=== PATIENT | female | born 1985 | race Hispanic/Latino ===

== ENCOUNTER 2020-09-06 13:29 | Observation (INO) | payer BC ==
[~2020-09-06 13:29] MED LIST: PREN-154 PO
[2020-09-06 14:29] LABS: BASOPHILS % (AUTO) 0.3 % (0.0-5.0); EOSINOPHILS % (AUTO) 0.7 % (0.0-8.0); HEMATOCRIT 29.1 % (36-48); LYMPHOCYTES % (AUTO) 27.3 % (21.0-51.0); MEAN CORPUSCULAR HEMOGLOBIN 25.5 pg (27.0-33.0); MEAN CORPUSCULAR HGB CONC 32.3 g/dL (32.0-36.0); MEAN CORPUSCULAR VOLUME 79.1 fL (79-99); MONOCYTES % (AUTO) 8.2 % (3.0-13.0); NEUTROPHILS % (AUTO) 63.1 % (40.0-77.0); PLATELET COUNT (AUTO) 276 K/uL (130-400); RED BLOOD CELL COUNT(AUTO) 3.68 MIL/uL (4.00-5.50); RED CELL DISTRIBUTION WIDTH 13.9 % (11.0-15.5); WHITE BLOOD COUNT (AUTO) 7.3 K/uL (4.8-10.8)
[2020-09-06 14:30] LABS: APPEARANCE,URINE Clear (CLEAR); BILIRUBIN,URINE Negative (NEGATIVE); COLOR,URINE Yellow (YELLOW); GLUCOSE, URINE (UA) Negative (NEGATIVE); KETONES,URINE Negative (NEGATIVE); LEUKOCYTE ESTERASE ,URINE Moderate (NEGATIVE); NITRATE,URINE Negative (NEGATIVE); OCCULT BLOOD,URINE Trace (NEGATIVE); PH,URINE 6.5 (5.0-8.0); PROTEIN,URINE Negative (NEGATIVE); UROBILINOGEN,URINE 0.2 mg/dL (0.2-1.0)
[2020-09-06 14:42] LABS: INR 0.97 (0.85-1.15); PROTHROMBIN TIME 10.6 SEC (9.6-11.6)
[2020-09-06 14:43] LABS: PARTIAL THROMBOPLASTIN TIME 26.8 SEC (26.3-35.5)
[2020-09-06 14:47] LABS: ALBUMIN 2.7 g/dL (3.5-5.0); BILIRUBIN,TOTAL 0.2 mg/dL (0.2-1.0); CREATININE 0.6 mg/dL (0.5-1.5); POTASSIUM 3.8 mmol/L (3.5-5.1); TOTAL PROTEIN, SERUM 6.8 g/dL (6.0-8.3)
[2020-09-06 14:50] LABS: BACTERIA,URINE Few /HPF (None Seen); MUCUS,URINE Few LPF (None Seen); SQUAMOUS EPITHELIAL CELL,UR Moderate /HPF (0-2)
== END 2020-09-06 15:40 | disposition home or self-care (01) ==
LOC: LDH 13:29 → INTOOBSV 13:29 → EDSTATUS 09-20 13:29
PROVIDERS: ADMIT Specialist; ATTEND Specialist
DX: O14.93 Unspecified pre-eclampsia, third trimester (principal); O09.523 Supervision of elderly multigravida, third trimester; O26.893 Other specified pregnancy related conditions, third trimester; R60.0 Localized edema; Z3A.38 38 weeks gestation of pregnancy
CPT/HCPCS: 36415; 59025; 76819; 80053; 81001; 84550; 85025; 85384; 85610; 85730; 87088; G0378 ×2

== ENCOUNTER 2020-09-14 00:13 | Inpatient (IN) | payer BC ==
[~2020-09-14] VITALS: Ht 152.4 cm; Wt 89.8 kg
[2020-09-14] MEDS ORDERED: LACTATED RINGERS 1000ML 1,000 ML IV SCH ×2 (00:30→00:45)
[2020-09-14] MEDS ORDERED: LACTATED RINGERS 1000ML 1,000 ML IV PRN (00:45)
[2020-09-14 01:13] VITALS: BP 145/79
[2020-09-14 01:17] LABS: APPEARANCE,URINE Turbid (CLEAR); BILIRUBIN,URINE Negative (NEGATIVE); COLOR,URINE Yellow (YELLOW); GLUCOSE, URINE (UA) Negative (NEGATIVE); KETONES,URINE Negative (NEGATIVE); LEUKOCYTE ESTERASE ,URINE Trace (NEGATIVE); NITRATE,URINE Negative (NEGATIVE); OCCULT BLOOD,URINE Moderate (NEGATIVE); PROTEIN,URINE 300 mg/dL (NEGATIVE); UROBILINOGEN,URINE 0.2 mg/dL (0.2-1.0)
[2020-09-14 01:22] LABS: AMORPHOUS SEDIMENT,UR Moderate /LPF (None Seen); BACTERIA,URINE None Seen /HPF (None Seen); SQUAMOUS EPITHELIAL CELL,UR Many /HPF (0-2); WBC,URINE 0-1 /HPF (0-1)
[2020-09-14 01:24] LABS: AMPHET/METH SCREEN,URINE NEGATIVE (NEGATIVE); BARBITURATE SCREEN, URINE NEGATIVE (NEGATIVE); BENZODIAZEPINES SCREEN,URINE NEGATIVE (NEGATIVE); CANNABINOID SCREEN,URINE NEGATIVE (NEGATIVE); COCAINE SCREEN,URINE NEGATIVE (NEGATIVE); OPIATE SCREEN,URINE NEGATIVE (NEGATIVE); PHENCYCLIDINE SCREEN,URINE NEGATIVE (NEGATIVE)
[2020-09-14 01:53] LABS: HEMATOCRIT 27.3 % (36-48); MEAN CORPUSCULAR VOLUME 78.9 fL (79-99); RED BLOOD CELL COUNT(AUTO) 3.46 MIL/uL (4.00-5.50); RED CELL DISTRIBUTION WIDTH 14.5 % (11.0-15.5); WHITE BLOOD COUNT (AUTO) 6.7 K/uL (4.8-10.8)
[2020-09-14] MEDS ORDERED: ROPIVACAINE 0.2% 100ML VIAL 100 ML EP SCH (02:00)
[2020-09-14] MEDS ORDERED: LACTATED RINGERS 500 ML 500 ML IV PRN (02:00)
[2020-09-14] MEDS ORDERED: EPHEDRINE SULFATE 50 MG/ML AMPULE IVP PRN (02:00)
[2020-09-14] MEDS ORDERED: NALOXONE HCL 0.4 MG/1 ML ML IV PRN (02:00)
[2020-09-14] MEDS ORDERED: FENTANYL CITRATE PF 50 MCG/1 ML 2ML VIAL ONE (04:55)
[2020-09-14] MEDS ORDERED: OXYTOCIN-LR 20 UNITS/1000 ML 1,000 ML IV SCH ×2 (05:00→16:00)
[2020-09-14] MEDS ORDERED: CEFAZOLIN SODIUM 1 GM VIAL ONE (12:59)
[2020-09-14] MEDS ORDERED: ACETAMINOPHEN 500 MG TABLET ONE (13:00)
[2020-09-14] MEDS ORDERED: ACETAMINOPHEN 500 MG TABLET PO SCH (14:35)
[2020-09-14] MEDS ORDERED: DIPHENOXYLATE HCL/ATROPINE 2.5/0.025 MG TAB PO ONE (15:05)
[2020-09-14] MEDS ORDERED: MISOPROSTOL 200 MCG TABLET ONE (15:06)
[2020-09-14] MEDS ORDERED: DIPH,PERTUSS(ACELL),TET VAC/PF 0.5 ML VIAL IM PRN (15:45)
[2020-09-14] MEDS ORDERED: LANOLIN 30GM OINTMENT TP PRN (15:45)
[2020-09-14] MEDS ORDERED: BENZOCAINE/LANOLIN/ALOE VERA 60 ML AEROSOL TP PRN (15:45)
[2020-09-14] MEDS ORDERED: ACETAMINOPHEN 325 MG TAB PO PRN (15:45)
[2020-09-14] MEDS ORDERED: MEASLES/MUMPS/RUBELLA VACCINE, LIVE 0.5 ML/VIAL SQ PRN (15:45)
[2020-09-14] MEDS ORDERED: WITCH HAZEL 1 PAD TP PRN (15:45)
[2020-09-14] MEDS ORDERED: ACETAMINOPHEN WITH CODEINE 1 TAB TAB PO PRN (15:45)
[2020-09-14] MEDS: IBUPROFEN 600 MG TABLET PO PRN (15:54)
[2020-09-14 19:09] VITALS: BP 120/63
[2020-09-14 19:25] VITALS: BP 120/63
[2020-09-14] MEDS: DOCUSATE SODIUM 100 MG CAP PO SCH (20:55)
[2020-09-14] MEDS: CEFAZOLIN SODIUM 1 GM VIAL IVP SCH ×2 (20:55→22:00)
[2020-09-14 21:15] VITALS: BP 118/68
[2020-09-14 23:12] VITALS: BP 126/72
[2020-09-15 03:42] VITALS: BP 121/74
[2020-09-15] MEDS: CEFAZOLIN SODIUM 1 GM VIAL IVP SCH ×2 (05:17→13:36)
[2020-09-15 06:37] LABS: BASOPHILS % (AUTO) 0.2 % (0.0-5.0); EOSINOPHILS % (AUTO) 0.2 % (0.0-8.0); HEMATOCRIT 25.7 % (36-48); LYMPHOCYTES % (AUTO) 12.3 % (21.0-51.0); MEAN CORPUSCULAR HEMOGLOBIN 24.9 pg (27.0-33.0); MEAN CORPUSCULAR HGB CONC 31.5 g/dL (32.0-36.0); MEAN CORPUSCULAR VOLUME 79.1 fL (79-99); NEUTROPHILS % (AUTO) 81.7 % (40.0-77.0); PLATELET COUNT (AUTO) 235 K/uL (130-400); RED BLOOD CELL COUNT(AUTO) 3.25 MIL/uL (4.00-5.50); RED CELL DISTRIBUTION WIDTH 14.6 % (11.0-15.5); WHITE BLOOD COUNT (AUTO) 18.7 K/uL (4.8-10.8)
[2020-09-15 07:19] VITALS: BP 122/70
[2020-09-15] MEDS: DOCUSATE SODIUM 100 MG CAP PO SCH (09:21)
[2020-09-15] MEDS: IBUPROFEN 600 MG TABLET PO PRN (09:23)
[2020-09-15 11:39] VITALS: BP 116/67
[2020-09-15 13:14] LABS: HEPATITIS Bs ANTIGEN SCREEN P Negative (Negative)
== END 2020-09-15 18:10 | disposition home or self-care (01) | DRG 807 ==
LOC: EDH 00:13 → LDH 00:14 → OBSVTOIN 00:14 → WSH 21:00
PROVIDERS: ADMIT Specialist; ATTEND Specialist
PROC: 10E0XZZ Delivery of Products of Conception, External Approach (ICD-10-PCS; principal; 2020-09-14)
PROC: 3E0234Z Introduction of Serum, Toxoid and Vaccine into Muscle, Percutaneous Approach (ICD-10-PCS; 2020-09-14)
PROC: 3E0134Z Introduction of Serum, Toxoid and Vaccine into Subcutaneous Tissue, Percutaneous Approach (ICD-10-PCS; 2020-09-14)
PROC: 3E0R3BZ Introduction of Anesthetic Agent into Spinal Canal, Percutaneous Approach (ICD-10-PCS; 2020-09-14)
PROC: 00HU33Z Insertion of Infusion Device into Spinal Canal, Percutaneous Approach (ICD-10-PCS; 2020-09-14)
DX: O80 Encounter for full-term uncomplicated delivery (principal); Z37.0 Single live birth; Z3A.39 39 weeks gestation of pregnancy; Z23 Encounter for immunization
CPT/HCPCS: 36415; 76815; 80305; 81001; 85025; 85027; 86592; 86850; 86900; 86901; 87070; 87076; 87077; 87186; 87340; A4314; G0378; J0690; J2590; J2795; J3010; J7120